=== PATIENT | male | born 1965 | race Caucasian/White ===

== ENCOUNTER 2016-11-02 16:56 | Inpatient (IN) | payer BC ==
[~2016-11-02] VITALS: Ht 190.5 cm; Wt 113.0 kg
[2016-11-02] MEDS ORDERED: morphine 4 MG/ML VIAL IV STA (17:28)
[2016-11-02] MEDS ORDERED: SOD CHLORIDE 0.9% 1,000 ML IV STA (17:28)
[2016-11-02] MEDS ORDERED: ONDANSETRON 4 MG INJ IV STA (17:28)
[2016-11-02 18:01] LABS: BASOPHIL # 0.1 10^3/ul (0.0-0.1); BASOPHILS % 0.4 % (0.0-2.0); EOSINOPHILS # 0.1 10^3/ul (0.0-0.5); EOSINOPHILS % 0.9 % (0.0-7.0); HEMATOCRIT 46.6 % (42.0-52.0); HEMOGLOBIN 15.8 g/dl (14.0-18.0); LYMPHOCYTES # 2.9 10^3/ul (0.8-2.9); LYMPHOCYTES % 19.9 % (15.0-51.0); MEAN CORPUSCULAR HEMOGLOBIN 29.8 pg (29.0-33.0); MEAN CORPUSCULAR HGB CONC 33.9 g/dl (32.0-37.0); MEAN CORPUSCULAR VOLUME 87.9 fl (82.0-101.0); MONOCYTE # 1.5 10^3/ul (0.3-0.9); MONOCYTES % 10.1 % (0.0-11.0); NEUTROPHIL # 10.1 10^3/ul (1.6-7.5); NEUTROPHILS % 68.7 % (39.0-77.0); PLATELET COUNT 232 10^3/UL (140-440); RED BLOOD COUNT 5.31 10^6/ul (4.70-6.10); RED CELL DISTRIBUTION WIDTH 13.6 % (11.5-14.5); UNCORRECTED WBC 14.6 10^3/ul (4.8-10.8); WHITE BLOOD COUNT 14.6 10^3/ul (4.8-10.8)
[2016-11-02 18:03] LABS: CONDITION 1
[2016-11-02 19:10] LABS: ADD UMIC YES; URINE BILIRUBIN (Dip) NEGATIVE (NEGATIVE); URINE BLOOD (Dip) NEGATIVE (NEGATIVE); URINE COLOR YELLOW (YELLOW); URINE GLUCOSE (Dip) NEGATIVE (NEGATIVE); URINE KETONES (Dip) TRACE (NEGATIVE); URINE LEUKOCYTE ESTERASE (Dip) NEGATIVE (NEGATIVE); URINE NITRITE (Dip) NEGATIVE (NEGATIVE); URINE TOTAL PROTEIN (Dip) TRACE (NEGATIVE); URINE UROBILINOGEN (Dip) 2.0 E.U./dL (0.1-1.0)
[2016-11-02 19:21] LABS: ALBUMIN 4.5 g/dl (3.3-4.9); CHLORIDE 99 mmol/L (97-110); POTASSIUM 4.3 mmol/L (3.5-5.1); SODIUM 140 mmol/L (135-144)
[2016-11-02 19:23] LABS: ANION GAP 19 (8-16); BILIRUBIN,INDIRECT 0.6 mg/dl (0-1.1); BILIRUBIN,TOTAL 0.6 mg/dl (0.2-1.3); CARBON DIOXIDE 26 mmol/L (21-31); CREATININE 0.92 mg/dl (0.61-1.24)
[2016-11-02 19:24] LABS: ALANINE AMINOTRANSFERASE 80 IU/L (13-69); ALBUMIN/GLOBULIN RATIO 1.55; ALKALINE PHOSPHATASE 70 IU/L (42-121); ASPARTATE AMINO TRANSFERASE 82 IU/L (15-46); BLOOD UREA NITROGEN 16 mg/dl (7-20); CALCIUM 9.4 mg/dl (8.4-10.2); GLUCOSE 178 mg/dl (70-220); TOTAL PROTEIN 7.4 g/dl (6.1-8.1)
[2016-11-02 19:34] LABS: TROPONIN-I < 0.012 ng/ml (0.00-0.12)
[2016-11-02 19:38] LABS: BACTERIA,URINE FEW; MUCUS,URINE MANY; URINE RBCS NONE SEEN /HPF (0)
[2016-11-02 21:00] VITALS: TEMP 98.2
--- NOTE | 2016-11-02 22:24 | RADRPT ---
PROCEDURE: US gallbladder . CLINICAL INDICATION: Abdominal Pain TECHNIQUE: Multiple real-time images were acquired of the patient's abdomen utilizing a high resol ution transducer. COMPARISON: None FINDINGS: Stones are identified within the gallbladder. Gallbladder wall thickening, with wall measuring between 4 to 5 mm. No evident pericholecystic flui d. The common bile duct measures for mm in maximal dimension. No free fluid is identified. Right kidney measures 108 x 63 x 65 mm. No evident renal mass, hydronephrosis retained calculus. There is an large measuring up to 232 mm, and the there is fatty infiltration IMPRESSION: 1. Gallstones and gallbladder wall thickening, which may represent acute cholecystitis the appropri ate clinical setting. 2. Fatty infiltration of the liver and hepatomegaly. RPTAT: [facility]U Physician Krystal Date Time Electronically viewed and signed by Physician Krystal on 11/02/2016 22:23 RS/
[2016-11-02] MEDS ORDERED: AMPICILLIN/SULB 3 GM/NS (PMX) 100 ML IVPB ONE (22:30)
[2016-11-02] MEDS ORDERED: ONDANSETRON 4 MG INJ IV PRN (22:30)
[2016-11-02] MEDS ORDERED: ACETAMINOPHEN 325 MG TAB PO PRN (22:30)
--- NOTE | 2016-11-02 22:38 | ERA ---
ER Documentation Chief Complaint Date/Time DATE: 11/02/16 TIME: 22:36 Chief Complaint Epigastric pain with nausea HPI Patient is a 51-year-old male with gallstones who presents with abdominal pain. The patient was brought in by ambulance. The patient says that his pain started with a sore throat yesterday but then he started with abdominal pain today. He says that it was very strong and it started last night. He had shaking all over last night from the pain. He tried amoxicillin and Advil. His abdominal pain started after eating and the pain is been constant and sharp in nature. It is in the right upper quadrant. Upon review of old medical records this is the patient's first visit to the emergency department. ROS All systems reviewed and are negative except as per history of present illness. Medications Home Meds No Active Prescriptions or Reported Meds Allergies Allergies: Coded Allergies: No Known Allergy (Unverified , 11/02/16) PMhx/Soc Smoking Status: Unknown if ever smoked FmHx Family History: No diabetes Physical Exam Vitals Vital Signs Date Time Temp Pulse Resp B/P Pulse Ox O2 Delivery O2 Flow Rate FiO2 11/02/16 21:00 98.2 106 20 146/96 99 Room Air 11/02/16 19:20 98 2.0 28 11/02/16 17:20 98.2 83 20 123/89 92 Physical Exam Const: Moderate distress secondary to pain Head: Atraumatic Eyes: Normal Conjunctiva ENT: Normal External Ears, Nose and Mouth. Neck: Full range of motion..~ No meningismus. Resp: Clear to auscultation bilaterally Cardio: Regular rate and rhythm, no murmurs Abd: Soft, right upper quadrant tenderness to palpation Skin: No petechiae or rashes Back: No midline or flank tenderness Ext: No cyanosis, or edema Neur: Awake and alert Psych: Normal Mood and Affect Result Diagram: 11/02/16 1738 11/02/16 1738 Results 24 hrs Laboratory Tests Test 11/02/16 17:35 11/02/16 17:38 Urine Amorphous Urates FEW Urine Bacteria FEW Urine Bilirubin NEGATIVE Urine Clarity SLIGHTLY CLOUDY Urine Color YELLOW Urine Glucose NEGATIVE% Urine Hemoglobin NEGATIVE Urine Ketones TRACE Urine Leukocyte Esterase NEGATIVE Urine Microscopic RBC NONE SEEN/HPF Urine Microscopic WBC 2-5/HPF Urine Mucus MANY Urine Nitrite NEGATIVE Urine Specific [place] 1.015 Urine Total Protein TRACE Urine Urobilinogen 2.0 E.U./dL Urine pH 7.0 Alanine Aminotransferase (ALT/SGPT) 80IU/L Albumin 4.5g/dl Albumin/Globulin Ratio 1.55 Alkaline Phosphatase 70IU/L Anion Gap 19 Aspartate Amino Transf (AST/SGOT) 82IU/L Basophils # 0.110^3/ul Basophils % 0.4% Blood Urea Nitrogen 16mg/dl Calcium Level 9.4mg/dl Carbon Dioxide Level 26mmol/L Chloride Level 99mmol/L Creatinine 0.92mg/dl Direct Bilirubin 0.00mg/dl Eosinophils # 0.110^3/ul Eosinophils % 0.9% Globulin 2.90g/dl Glucose Level 178mg/dl Hematocrit 46.6% Hemoglobin 15.8g/dl Indirect Bilirubin 0.6mg/dl Lipase 86U/L Lymphocytes # 2.910^3/ul Lymphocytes % 19.9% Mean Corpuscular Hemoglobin 29.8pg Mean Corpuscular Hemoglobin Concent 33.9g/dl Mean Corpuscular Volume 87.9fl Mean Platelet Volume 9.0fl Monocytes # 1.510^3/ul Monocytes % 10.1% Neutrophils # 10.110^3/ul Neutrophils % 68.7% Nucleated Red Blood Cells # 0.010^3/ul Nucleated Red Blood Cells % 0.0/100WBC Platelet Count 00764^3/UL Potassium Level 4.3mmol/L Red Blood Count 5.3110^6/ul Red Cell Distribution Width 13.6% Sodium Level 140mmol/L Total Bilirubin 0.6mg/dl Total Protein 7.4g/dl Troponin I < 0.012ng/ml White Blood Count 14.610^3/ul Current Medications Medications (Trade) Dose Ordered Sig/Ariana Route PRN Reason Start Time Stop Time Status Last Admin Dose Admin Sodium Chloride (NS) 1,000 ml @ 1,000 mls/hr Q1H STAT IV 11/02/16 17:28 11/02/16 18:27 DC 11/02/16 17:39 Morphine Sulfate (morphine) 4 mg ONCE STAT IV 11/02/16 17:28 11/02/16 17:30 DC 11/02/16 17:39 Ondansetron HCl 4 mg 4 mg ONCE STAT IV 11/02/16 17:28 11/02/16 17:30 DC 11/02/16 17:39 Ampicillin Sodium/ Sulbactam Sodium (Unasyn 3gm/NS (Pmx)) 100 ml @ 100 mls/hr ONCE ONCE IVPB 11/02/16 22:30 11/02/16 23:29 11/02/16 22:28 Ondansetron HCl (Zofran Inj) 4 mg BRIDGE ORDER PRN IV NAUSEA AND/OR VOMITING 11/02/16 22:30 11/03/16 22:29 Acetaminophen (Tylenol Tab) 650 mg ER BRIDGE PRN PO MILD PAIN/FEVER 11/02/16 22:30 11/03/16 22:29 Procedures/MDM Ultrasound shows gallstones with a thickened gallbladder wall per radiology. EKG read by me: Rate/Rhythm: Regular rate and rhythm at a normal rate Intervals: Normal Impression: No evidence of ischemia or arrhythmia Chest x-ray pending. Smoking Cessation Therapy: Pt. was lectured for greater than 3 minutes on the health risks of continued smoking and the benefits of cessation. Patient is a 51-year-old male who presents with abdominal pain. He was found to have an elevated white blood cell count and thickened gallbladder wall with gallstones on ultrasound. He has right upper quadrant abdominal pain and I believe he has acute cholecystitis. He was given Unasyn IV. I spoke with Dr. Juárez as the patient has regal insurance and the patient will be admitted to a medical surgical bed. I have placed a call to Dr. Connolly but we have not received a call back as of yet. The patient will need to be admitted for cholecystectomy. Departure Diagnosis: Primary Impression: Abdominal pain Qualified Code: R10.11 - Right upper quadrant abdominal pain Additional Impression: Cholecystitis Condition: MARTIN Lieberman MD Nov 02, 2016 22:38
[2016-11-02] MEDS ORDERED: ZOLPIDEM 5 MG TAB PO PRN (23:00)
--- NOTE | 2016-11-02 23:01 | RADRPT ---
PROCEDURE: XR Chest. CLINICAL INDICATION: Preop TECHNIQUE: Single frontal chest x-ray. COMPARISON: None. FINDINGS: There is hypoinflation of the lungs. The lungs are clear. No focal opacification is seen. The cardiomediastinal silhouette is unremarka ble. The osseous structures are unremarkable. ECG leads are projected over the chest. IMPRESSION: Hypoinflation of the lungs. No definite acute abnormality seen. RPTAT: HJES .Killian Jefferson MD, MD Date Time Electronically viewed and signed by .Killian Jefferson MD, on 11/02/2016 23:01 .S/
[2016-11-02 23:18] LABS: INR 0.95; PROTIME 12.7 Sec (12.2-14.2)
[2016-11-02 23:19] LABS: PARTIAL THROMBOPLASTIN TIME 25.3 Sec (25.0-35.0)
[2016-11-03] VITALS (21 sets, daily range): BP systolic 110–145; BP diastolic 58–92; PULSE 68–105; RESP 10–21; Ht 190.5 cm; Wt 113.0 kg
[2016-11-03] MEDS: POTASSIUM CHLORIDE 10 MEQ in SOD CHLORIDE 0.9% 1,000 ML IV SCH ×3 (01:03→15:06)
[2016-11-03] MEDS: PIPER-TAZO 3.375 GM IV (PMX) 100 ML IVPB SCH ×3 (06:22→21:34)
[2016-11-03] MEDS ORDERED: EPHEDrine SULFATE 50 MG/5 ML SYG ONE (07:00)
[2016-11-03] MEDS ORDERED: ATROPINE 1 MG/10 ML SYRINGE ONE (07:00)
[2016-11-03] MEDS ORDERED: ESMOLOL 100 MG INJ ONE (07:00)
[2016-11-03] MEDS ORDERED: PSEUDOEPHEDRINE 30 MG TAB PO PRN (08:30)
[2016-11-03 10:01] LABS: BASOPHILS % 0.3 % (0.0-2.0); EOSINOPHILS # 0.2 10^3/ul (0.0-0.5); EOSINOPHILS % 1.9 % (0.0-7.0); HEMATOCRIT 45.9 % (42.0-52.0); HEMOGLOBIN 15.6 g/dl (14.0-18.0); LYMPHOCYTES # 2.4 10^3/ul (0.8-2.9); LYMPHOCYTES % 18.8 % (15.0-51.0); MEAN CORPUSCULAR HEMOGLOBIN 30.1 pg (29.0-33.0); MEAN CORPUSCULAR HGB CONC 33.9 g/dl (32.0-37.0); MEAN CORPUSCULAR VOLUME 88.6 fl (82.0-101.0); MEAN PLATELET VOLUME 8.9 fl (7.4-10.4); MONOCYTE # 1.1 10^3/ul (0.3-0.9); MONOCYTES % 8.9 % (0.0-11.0); NEUTROPHILS % 70.1 % (39.0-77.0); PLATELET COUNT 218 10^3/UL (140-440); RED BLOOD COUNT 5.18 10^6/ul (4.70-6.10); UNCORRECTED WBC 12.8 10^3/ul (4.8-10.8); WHITE BLOOD COUNT 12.8 10^3/ul (4.8-10.8)
[2016-11-03 10:04] LABS: CONDITION 1
[2016-11-03 10:11] LABS: POTASSIUM 4.6 mmol/L (3.5-5.1)
[2016-11-03 10:12] LABS: BILIRUBIN,INDIRECT 0.7 mg/dl (0-1.1); BILIRUBIN,TOTAL 0.7 mg/dl (0.2-1.3)
[2016-11-03 10:13] LABS: CREATININE 0.88 mg/dl (0.61-1.24)
[2016-11-03 10:14] LABS: CALCIUM 8.7 mg/dl (8.4-10.2)
--- NOTE | 2016-11-03 12:35 | HP ---
DATE OF ADMISSION: 11/02/2016 CHIEF COMPLAINT: "I have severe pain in my stomach." HISTORY OF PRESENT ILLNESS: The patient is a very pleasant 51-year-old male with no significant past medical history who was in his usual state of health until approximately 1 day prior to admission. The patient stated he had a sore throat the day prior to admission and then developed severe abdominal pain. He tried amoxicillin and Advil, but the pain progressed, so he presented to the emergency department for further evaluation and treatment. In the emergency department, the patient had an ultrasound of the right upper quadrant which revealed gallbladder wall thickening and gallstones which represent acute cholecystitis. There was also fatty infiltration of the liver and hepatomegaly. The patient was given Unasyn in the emergency department and sent to the medical floor for further evaluation and treatment. ALLERGIES: NO KNOWN DRUG ALLERGIES sensation. MEDICATIONS: None. PAST MEDICAL HISTORY: None. PAST SURGICAL HISTORY: None. SOCIAL HISTORY: The patient smokes 1 to 2 cigars a day for the last 22 years. He drinks about 2 to 3 glasses of various alcoholic drinks 2 to 3 times a week. 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 FAMILY HISTORY: His mother at age 92 of "natural causes." She had a history of breast cancer. Father at age 87 of prostate cancer. REVIEW OF SYSTEMS: Essentially negative except as stated in the history of present illness. PHYSICAL EXAMINATION: VITAL SIGNS: Presenting temperature was 98.2, current blood pressure 121/71, pulse rate of 95, respiratory rate of 20, oxygen saturation 98% on room air. HEENT: Normocephalic, atraumatic. His extraocular movements are intact and equal. His stools are equal, round, and reactive to light and accommodation. Oropharynx was mildly erythematous. There was no exudate noted. CARDIOVASCULAR: He had a regular rate and rhythm without appreciable murmurs, rubs, or gallops. LUNGS: Clear to auscultation bilaterally without rales, rhonchi, or crackles. ABDOMEN: Soft, tender to palpation in the right upper quadrant. No rebound was noted. No guarding was noted. He had normoactive bowel sounds present in all 4 quadrants. EXTREMITIES: No clubbing, cyanosis, or edema was noted. NEUROLOGIC: He is alert and oriented x4. His cranial nerves II through XII are grossly intact. Strength and sensation was grossly intact. LABORATORIES/TESTS: His initial white count was 14.6 with 69% neutrophils and 20% lymphocytes. His sodium is 140, potassium 4.3, chloride 99, bicarbonate 26 , BUN 16, creatinine 0.92, glucose 178, calcium 9.4. Total bilirubin 0.6. AST 82, ALT 80, alkaline phosphatase 70. Troponin 0.02. Total protein 7.4, albumin 4.5, globulin 2.9, triglycerides 131, cholesterol 200, LDL 134, HDL 40, lipase 86. IMPRESSION: The patient is a very pleasant 51-year-old gentleman who is mildly obese. He has no significant past medical history and presents with acute cholecystitis. The patient was placed on intravenous Zosyn, and Dr. Connolly has been consulted. The patient will go to the operating room early this afternoon for a laparoscopic cholecystectomy. We will continue antibiotics and follow postoperatively. The patient also has a sore throat and some erythema in his retropharyngeal area. He has been on Zosyn, and we will check a rapid strep test. The plan of care was discussed with the patient, and all questions were answered to the patient's satisfaction. Dictated By: COLT PHAN/KANE Conf#: [id number] DID#: [id number] JUDI
[2016-11-03] MEDS ORDERED: BUPIVACAINE 0.25%/EPI (SDV) 30 ML INJ ONE (12:54)
--- NOTE | 2016-11-03 13:26 | CONS ---
DATE OF ADMISSION: 11/02/2016 DATE OF CONSULTATION: 11/03/2016 REASON FOR CONSULTATION: Acute cholecystitis. HISTORY OF PRESENT ILLNESS: The patient is a 51-year-old gentleman who has known gallstones for [place] roximately 1 year. He has not sought medical attention as he has been relatively asymptomatic. The patient presented to the emergency room with severe midepigastric and right upper quadrant abdomina l pain. Abdominal ultrasound shows gallstones with thickened gallbladder wall suggesting acute chol ecystitis. He has had no fevers or chills or jaundice or change in the color of his urine or stools . PAST MEDICAL HISTORY: Patient has had no previous hospitalizations or illnesses. OUTPATIENT MEDICATIONS: None. ALLERGIES: NONE. REVIEW OF SYSTEMS: HEAD, EARS, EYES, NOSE AND THROAT: Unremarkable. PULMONARY: No history of pneumonia, shortness of breath, or asthma. CARDIAC: No history of chest pain, MS, or arrhythmia. ABDOMEN: As in the HPI. EXTREMITIES: Unremarkable. PHYSICAL EXAMINATION: GENERAL: The patient is a borderline morbidly obese 51-year-old male in no acute distress. HEAD, EARS, EYES, NOSE, THROAT: Within normal limits. LUNGS: Clear. ABDOMEN: Tender in the right upper quadrant with a positive Bonds sign. EXTREMITIES: Unremarkable. LABORATORY DATA: Patient's white count on admission is 14,600; it is down to 12,800 today. His hem atocrit is 45.9. BUN, glucose, electrolytes are unremarkable. LFTs show a bilirubin of 0.7, with a slightly elevated AST at 106 and ALT at 198, alkaline phosphatase is 81. IMPRESSION: This patient has acute cholecystitis and will most certainly be benefited by laparoscop ic cholecystectomy, possible open. I have discussed the procedure, outcomes, expectations, alternat servando and risks in detail with the patient, who has an excellent understanding of the nature of his s ituation and agrees to the proposed plan of therapy as outlined. Dictated By: DAMION MURILLO/KANE Conf#: [id number] DID#: [id number]
[2016-11-03] MEDS ORDERED: SUCCINYLCHOLINE CHLORIDE 100 MG/5 ML SYG IV ONE (13:55)
[2016-11-03] MEDS ORDERED: PROPOFOL 20 ML ONE (13:55)
[2016-11-03] MEDS ORDERED: ROCURONIUM 50 MG INJ ONE (13:55)
[2016-11-03] MEDS ORDERED: PHENYLephrine (100 MCG/ML) 5ML SYG ONE ×2 (14:29→14:42)
[2016-11-03] MEDS ORDERED: DEXAMETHASONE 4 MG/ML 1 ML INJ ONE (14:48)
[2016-11-03] MEDS ORDERED: METOCLOPRAMIDE 10 MG INJ ONE (14:48)
[2016-11-03] MEDS ORDERED: ONDANSETRON 4 MG INJ ONE (14:48)
[2016-11-03] MEDS ORDERED: FAMOTIDINE 20 MG INJ ONE (14:48)
[2016-11-03] MEDS ORDERED: LIDOCAINE 2% JELLY 5 ML ONE (14:58)
[2016-11-03] MEDS ORDERED: NEOSTIGMINE 3 MG/3 ML SYRINGE ONE (15:05)
[2016-11-03] MEDS ORDERED: GLYCOPYRROLATE 0.4 MG INJ ONE (15:05)
[2016-11-03] MEDS ORDERED: morphine 2 MG INJ IV PRN (15:30)
[2016-11-03] MEDS ORDERED: ONDANSETRON 4 MG INJ IV PRN (15:30)
[2016-11-03] MEDS ORDERED: OXYCODONE/ACETAMINOPHEN (5/325) TAB PO PRN ×2 (15:30)
[2016-11-03] MEDS ORDERED: DIPHENHYDRAMINE 50 MG INJ ONE (15:45)
[2016-11-03] MEDS ORDERED: HYDROmorphONE (0.2 MG/ML) 10ML SYG IV ONE (15:45)
[2016-11-03] MEDS ORDERED: HYDROmorphONE (0.2 MG/ML) 10ML SYG IV PRN (16:00)
[2016-11-03] MEDS ORDERED: DIPHENHYDRAMINE 50 MG INJ IV PRN (16:00)
[2016-11-03] MEDS ORDERED: KETOROLAC 30 MG INJ IV ONE (16:00)
--- NOTE | 2016-11-03 16:54 | OPR ---
DATE OF OPERATION: 11/03/2016 PREOPERATIVE DIAGNOSIS: Acute cholecystitis. PROCEDURE: 1. Laparoscopic cholecystectomy. 2. Placement of drain. POSTOPERATIVE DIAGNOSIS: Acute cholecystitis. SURGEON: Damion Connolly MD ANESTHESIA: General. ANESTHESIOLOGIST: Dr. Pardo. OPERATIVE REPORT: After satisfactory general endotracheal anesthesia was achieved, the abdomen was prepped and draped in the usual fashion. The abdomen was insufflated with carbon dioxide through an umbilical Veress needle to 15 mmHg pressure. The Veress needle was removed, and the umbilical incision extended to 5 mm, through which a 5-mm tro car was placed. A 5-mm, 0-degree lens was placed. Laparoscopy showed an acutely inflamed, distende d gallbladder. Under direct visualization, a 12-mm epigastric trocar was placed, as well as two 5-m m right lateral abdominal trocars. The dome of the gallbladder was grasped and retracted superiorly . Rafa's pouch was retracted inferiorly. The hepatoduodenal ligament was carefully dissected b etween the gallbladder and the nguyen hepatis. The cystic duct was then triply hemoclipped and divid ed high at the junction of the gallbladder and the cystic duct. The cystic artery was identified co ursing immediately behind this. This was triply hemoclipped and divided. A peritoneal attachment t o the gallbladder was divided over a clip. The gallbladder was then dissected from below using elec trocautery dissection and placed into an EndoCatch, removed via the epigastric route. Hemostasis of the liver bed was excellent. Because of the marked inflammation in the right upper quadrant, it wa s elected to place a #19 round Blanco drain. The drain was placed, draining the subhepatic space and gallbladder fossa, and exited through the lateral most puncture site where it was secured to the sk in with a single suture of 2-0 silk. Irrigant returned clear. The abdomen was then desufflated, an d the trocars were removed. The fascia of the epigastrium was closed with 2 sutures of 0 Vicryl. T he skin punctures were infiltrated with 30 mL of 0.25% Marcaine with epinephrine and closed with sta ples. Sponge and needle counts reported as correct x2. The patient tolerated the procedure well, and without incident or complication. Dictated By: DAMION MRUILLO/KANE Conf#: [id number] [facility]#: [id number]
[2016-11-03] MEDS: ONDANSETRON 4 MG INJ IV PRN (17:34)
[2016-11-04] MEDS: POTASSIUM CHLORIDE 10 MEQ in SOD CHLORIDE 0.9% 1,000 ML IV SCH (02:21)
[2016-11-04] MEDS: PIPER-TAZO 3.375 GM IV (PMX) 100 ML IVPB SCH ×2 (05:40→14:38)
[2016-11-04 06:58] LABS: POTASSIUM 4.3 mmol/L (3.5-5.1)
[2016-11-04 07:01] LABS: CALCIUM 8.5 mg/dl (8.4-10.2); CREATININE 0.79 mg/dl (0.61-1.24)
[2016-11-04 07:09] LABS: BASOPHIL # 0.1 10^3/ul (0.0-0.1); BASOPHILS % 0.5 % (0.0-2.0); EOSINOPHILS % 0.3 % (0.0-7.0); HEMATOCRIT 39.8 % (42.0-52.0); HEMOGLOBIN 13.8 g/dl (14.0-18.0); LYMPHOCYTES # 2.4 10^3/ul (0.8-2.9); LYMPHOCYTES % 17.7 % (15.0-51.0); MEAN CORPUSCULAR HEMOGLOBIN 30.2 pg (29.0-33.0); MEAN CORPUSCULAR HGB CONC 34.5 g/dl (32.0-37.0); MEAN CORPUSCULAR VOLUME 87.5 fl (82.0-101.0); MONOCYTE # 1.1 10^3/ul (0.3-0.9); MONOCYTES % 8.2 % (0.0-11.0); NEUTROPHIL # 10.1 10^3/ul (1.6-7.5); NEUTROPHILS % 73.3 % (39.0-77.0); PLATELET COUNT 246 10^3/UL (140-440); RED BLOOD COUNT 4.55 10^6/ul (4.70-6.10); RED CELL DISTRIBUTION WIDTH 13.7 % (11.5-14.5); UNCORRECTED WBC 13.8 10^3/ul (4.8-10.8); WHITE BLOOD COUNT 13.8 10^3/ul (4.8-10.8)
[2016-11-04 07:10] LABS: CONDITION 1
[2016-11-04 08:00] VITALS: BP 117/80; RESP 18
[2016-11-04] MEDS: morphine 2 MG INJ IV PRN ×2 (08:04→14:38)
[2016-11-04 09:49] LABS: ALBUMIN 3.7 g/dl (3.3-4.9)
[2016-11-04 09:52] LABS: BILIRUBIN,INDIRECT 0.3 mg/dl (0-1.1); BILIRUBIN,TOTAL 0.3 mg/dl (0.2-1.3); TOTAL PROTEIN 6.4 g/dl (6.1-8.1)
--- NOTE | 2016-11-04 11:04 | PN ---
Date/Time of Note Date/Time of Note DATE: 11/04/16 TIME: 10:44 Assessment/Plan VTE Prophylaxis VTE Prophylaxis Intervention: SCD's Lines/Catheters IV Catheter Type (from Nrsg): Peripheral IV Urinary Cath still in place: No Assessment/Plan Assessment/Plan 51-year-old gentleman: 1. Acute cholecystitis: s/p lap gigi POD#[address] On Zosyn and pain control Follow up surgery recs for d/c planning d/c IVF Prophylaxis: Pepcid for GI ppx and SCDs for dvt ppx Disposition: Follow up surgical recommendations today for d/c planning Subjective 24 Hr Interval Summary Free Text/Dictation Patient remains stable Tolerating po, pain controlled, CADE drain in place F/u gen surg recs for discharge planning Exam/Review of Systems Vital Signs Vitals Vital Signs Date Time Temp Pulse Resp B/P Pulse Ox O2 Delivery O2 Flow Rate FiO2 11/04/16 08:00 98.2 91 18 117/80 92 11/03/16 17:26 Nasal Cannula 2.0 11/02/16 19:20 28 Intake and Output 11/03/16 11/03/16 11/04/16 15:00 23:00 07:00 Intake Total 600 ml 1245 ml 1372.5 ml Output Total 70 ml 1627 ml Balance 600 ml 1175 ml -254.5 ml Exam Constitutional: alert, oriented, well developed Respiratory: clear to auscultation, normal air movement Cardiovascular: nl pulses, regular rate and rhythm Gastrointestinal: other (RUQ drain in place ), soft, tender (at surgical sites ) Musculoskeletal: nl extremities to inspection, nl gait and stance Extremities: normal pulses, other (no edema, clubbing or cyanosis ) Neurological: GUM MAKER II-XII intact, nl mental status, nl speech, nl strength Results Result Diagram: 11/04/16 0520 11/04/16 0520 Results 24 hrs Laboratory Tests Test 11/04/16 05:20 Alanine Aminotransferase (ALT/SGPT) 164 H Albumin 3.7 Alkaline Phosphatase 68 Anion Gap 14 Aspartate Amino Transf (AST/SGOT) 63 H Basophils # 0.1 Basophils % 0.5 Blood Urea Nitrogen 14 Calcium Level 8.5 Carbon Dioxide Level 28 Chloride Level 106 Creatinine 0.79 Direct Bilirubin 0.00 Eosinophils # 0.0 Eosinophils % 0.3 Glucose Level 83 Hematocrit 39.8 L Hemoglobin 13.8 L Indirect Bilirubin 0.3 Lymphocytes # 2.4 Lymphocytes % 17.7 Mean Corpuscular Hemoglobin 30.2 Mean Corpuscular Hemoglobin Concent 34.5 Mean Corpuscular Volume 87.5 Mean Platelet Volume 9.0 Monocytes # 1.1 H Monocytes % 8.2 Neutrophils # 10.1 H Neutrophils % 73.3 Nucleated Red Blood Cells # 0.0 Nucleated Red Blood Cells % 0.0 Platelet Count 246 Potassium Level 4.3 Red Blood Count 4.55 L Red Cell Distribution Width 13.7 Sodium Level 144 Total Bilirubin 0.3 Total Protein 6.4 White Blood Count 13.8 H Medications Medications Current Medications Potassium Chloride 10 meq/ Sodium Chloride 1,005 ml @ 125 mls/hr Q8H3M IV Last administered on 11/04/16 02:21; Admin Dose 125 MLS/HR; Start 11/02/16 at 23:00 Piperacillin Sod/ Tazobactam Sod (Zosyn 3.375gm/ 100 ml (Pmx)) 100 ml @ 200 mls /hr Q8 IVPB Last administered on 11/04/16 05:40; Admin Dose 200 MLS/HR; Start 11/03/16 at 06:00 Morphine Sulfate (morphine) 2 mg Q4 PRN IV PAIN LEVEL 4-6 Last administered on 11/04/16 08:04; Admin Dose 2 MG; Start 11/02/16 at 23:00 Ondansetron HCl (Zofran Inj) 4 mg Q6 PRN IV NAUSEA AND/OR VOMITING Last administered on 11/03/16 17:34; Admin Dose 4 MG; Start 11/02/16 at 23:00 Pseudoephedrine HCl (Sudogest) 30 mg Q4H PRN PO congestion Last administered on 11/03/16 18:19; Admin Dose 30 MG; Start 11/03/16 at 08:30 Oxycodone/ Acetaminophen (Percocet (5/ 325)) 1 tab Q4H PRN PO MILD PAIN (1-3); Start 11/03/16 at 15:30 Oxycodone/ Acetaminophen (Percocet (5/ 325)) 2 tab Q4H PRN PO MODERATE PAIN (4- 6); Start 11/03/16 at 15:30 Morphine Sulfate (morphine) 2 mg ONCE PRN IV SEVERE PAIN LEVEL 7-10 Last administered on 11/04/16t 01:22; Admin Dose 2 MG; Start 11/03/16 at 15:30; Stop 11/04/16 at 15:29 Ondansetron HCl (Zofran Inj) 4 mg Q6H PRN IV NAUSEA; Start 11/03/16 at 15:30 Procedures Procedures DATE OF OPERATION: 11/03/2016 PREOPERATIVE DIAGNOSIS: Acute cholecystitis. PROCEDURE: 1. Laparoscopic cholecystectomy. 2. Placement of drain. POSTOPERATIVE DIAGNOSIS: Acute cholecystitis. SURGEON: Russell Connolly MD ANESTHESIA: General. ANESTHESIOLOGIST: Dr. Pardo. OPERATIVE REPORT: After satisfactory general endotracheal anesthesia was achieved, the abdomen was prepped and draped in the usual fashion. The abdomen was insufflated with carbon dioxide through an umbilical Veress needle to 15 mmHg pressure. The Veress needle was removed, and the umbilical incision extended to 5 mm, through which a 5-mm trocar was placed. A 5-mm, 0-degree lens was placed. Laparoscopy showed an acutely inflamed, distended gallbladder. Under direct visualization, a 12-mm epigastric trocar was placed, as well as two 5-mm right lateral abdominal trocars. The dome of the gallbladder was grasped and retracted superiorly. Rafa's pouch was retracted inferiorly. The hepatoduodenal ligament was carefully dissected between the gallbladder and the nguyen hepatis. The cystic duct was then triply hemoclipped and divided high at the junction of the gallbladder and the cystic duct. The cystic artery was identified coursing immediately behind this. This was triply hemoclipped and divided. A peritoneal attachment to the gallbladder was divided over a clip. The gallbladder was then dissected from below using electrocautery dissection and placed into an EndoCatch, removed via the epigastric route. Hemostasis of the liver bed was excellent. Because of the marked inflammation in the right upper quadrant, it was elected to place a #19 round Blanco drain. The drain was placed, draining the subhepatic space and gallbladder fossa, and exited through the lateral most puncture site where it was secured to the skin with a single suture of 2-0 silk. Irrigant returned clear. The abdomen was then desufflated , and the trocars were removed. The fascia of the epigastrium was closed with 2 sutures of 0 Vicryl. The skin punctures were infiltrated with 30 mL of 0.25% Marcaine with epinephrine and closed with anai. Sponge and needle counts reported as correct x2. The patient tolerated the procedure well, and without incident or complication. Dictated By: KAMLESH DAVISON MD Nov 04, 2016 10:54
[2016-11-04] MEDS: ONDANSETRON 4 MG INJ IV PRN (15:30)
--- NOTE | 2016-11-04 16:44 | PDOCDIS ---
Discharge Instructions CONDITION Patient Condition: Stable HOME CARE INSTRUCTIONS: Special Diet: REGULAR ACTIVITY: Activity Restrictions: No Restrictions FOLLOW UP/APPOINTMENTS Appointments Follow up with PCP in 1 to 2weeks Follow up with Dr Connolly within 1 week KAMLESH MORRELL Nov 04, 2016 16:44
[2016-11-04] MEDS ORDERED: AMOX1TAB10 PO (16:53)
[2016-11-04] MEDS ORDERED: Oxycodone/Acetamin (5/325) PO (16:53)
[2016-11-04] MEDS ORDERED: DOCU-144 PO (16:53)
--- NOTE | 2016-11-04 18:11 | PN ---
DATE: Postoperative day #1. The patient has been afebrile throughout. He is markedly symptomatically imp roved. Abdominal examination is benign. CADE drainage is serosanguineous at 77 mL. Bilirubin and al kaline phosphatase are normal. Abdominal examination is benign. PLAN: The CADE drain was removed at the bedside. The patient is cleared for discharge home today. O ffice followup in 1 week for staple removal. Dictated By: DAMION MURILLO/NTS Conf#: [id number] DID#: [id number] CC: COLT VÁZQUEZ MD;*EndCC*
--- NOTE | 2016-11-05 13:31 | DS ---
DATE OF ADMISSION: 11/02/2016 DATE OF DISCHARGE: 11/04/2016 ADMITTING PHYSICIAN: Joel Juárez MD PRIMARY CARE PHYSICIAN: Dr. Wood TRAVEL INFORMATION CENTER SUPERVISOR DURING THIS ADMISSION: Dr. Connolly. CHIEF COMPLAINT ON ADMISSION: Abdominal pain. BRIEF HISTORY OF PRESENT ILLNESS: This is a 51-year-old male with no significant past medical histo ry except for obesity, who presented to the emergency department with 1 day of abdominal pain. The patient was diagnosed with cholecystitis. Acute surgical consult was placed and the patient was sta rted on IV antibiotics. HOSPITAL COURSE: The patient was admitted to a medical/surgical bed. He was seen by Dr. Cathleen gee [facility] 24 hours, who performed a laparoscopic cholecystectomy with drain placement. The patient did we ll. By postoperative day 1, he was tolerating p.o. and his CADE drain was removed. He was given a 1 week course of antibiotics and discharged home. DISPOSITION: Discharged home. DISCHARGE CONDITION: Stable. DISCHARGE DIET: Regular diet. DISCHARGE ACTIVITY: Resume home activity. FOLLOWUP: The patient is to follow up with Dr. Connolly within 1 week and follow up with primary care physician within 1 to 2 weeks. DISCHARGE DIAGNOSIS: Acute cholecystitis status post cholecystectomy. DISCHARGE MEDICATIONS: 1. Augmentin 875 mg p.o. b.i.d. for 7 days. 2. Colace 100 mg p.o. b.i.d. as needed for constipation. 3. Percocet 5/325 one to 2 tabs p.o. every 6 hours p.r.n. pain. Dictated By: KAMLESH GRANADOS/KANE Conf#: [id number] DID#: [id number]
== END 2016-11-04 18:57 | disposition home or self-care (01) | DRG 419 ==
LOC: E/R 16:56 → OBG 22:27
PROVIDERS: ADMIT Internal Medicine; ATTEND Internal Medicine
PROC: 0FT44ZZ Resection of Gallbladder, Percutaneous Endoscopic Approach (ICD-10-PCS; principal; 2016-11-03 14:30)
DX: K80.00 Calculus of gallbladder with acute cholecystitis without obstruction (principal); E66.9 Obesity, unspecified; J02.9 Acute pharyngitis, unspecified; Z68.31 Body mass index [BMI] 31.0-31.9, adult
CPT/HCPCS: 36415; 71010; 76705; 80048; 80053; 80061; 80076; 81001; 81003; 83690; 84484; 85025; 85610; 85730; 86850; 86900; 86901; 87880; 88304; 93005; 96361; 96374; 96375; J0295; J0330; J0461; J1100; J1170; J1200; J1885; J2270; J2370; J2405; J2543; J2710; J2765; J3010; J3480; J7030

== ENCOUNTER 2018-06-06 15:41 | Emergency (ER) | END 2018-06-06 18:00 | disposition home or self-care (01) ==